=== PATIENT | female | born 1985 | race Caucasian/White ===

== ENCOUNTER 2021-03-09 10:33 | Outpatient (CLI) | payer OTHER, SELFPAY ==
[2021-03-09 10:49] LABS: Basophils Percent Auto 0.5 % (0.2-1.2); Eosinophils Absolute Auto 0.4 K/mm3 (0-0.3); Eosinophils Percent Auto 5.5 % (0-4.4); Hematocrit 40.3 % (37.0-47.0); Hemoglobin 13.3 g/dL (12.0-15.0); Immature Granulocyte Absolute 0.02 K/mm3 (0.00-0.031); Immature Granulocyte Percent A 0.3 % (0-0.5); Lymphocytes Absolute Auto 1.82 K/mm3 (0.9-3.2); Lymphocytes Percent Auto 23.9 % (18.3-44.2); Mean Corpuscular Hemoglobin 30.1 pg (26-34); Mean Corpuscular Volume 91.2 fl (80-100); Mean Platelet Volume 10.6 fl (7.4-10.4); Monocytes Absolute Auto 0.6 K/mm3 (0.1-0.6); Monocytes Percent Auto 7.3 % (2.6-8.5); Neutrophils Absolute Auto 4.8 K/mm3 (1.3-6.7); Neutrophils Percent Auto 62.5 % (45.5-73.1); Platelet Count Result 219 k/mm3 (150-375); Red Blood Count 4.42 M/mm3 (4.2-5.4); Red Cell Distribution Width 12.7 % (11.5-14.5); White Blood Count 7.6 K/mm3 (4.5-10.0)
[2021-03-09 11:00] LABS: Anion Gap 9 mmol/L (8-16); Aspartate Amino Transferase 19 U/L (14-36); Bilirubin,Total 0.4 mg/dL (0.2-1.3); Blood Urea Nitrogen 16 mg/dL (7-17); Calcium 8.8 mg/dL (8.4-10.2); Carbon Dioxide 22 mmol/L (22-30); Chloride 107 mmol/L (98-107); Estimated Glomerular Filt Rate > 60; Glucose 87 mg/dL (65-105); Potassium 4.3 mmol/L (3.4-5.0); Sodium 138 mmol/L (137-145)
[2021-03-09 11:01] LABS: Alanine Aminotransferase 16 U/L (4-35); Alkaline Phosphatase 55 U/L (38-126)
== END 2021-03-09 10:34 | disposition home or self-care (01) ==
PROVIDERS: PCP Family Medicine; Visit Provider Physician Assistant
DX: R10.9 Unspecified abdominal pain (principal); R19.7 Diarrhea, unspecified
CPT/HCPCS: 36415; 80053; 85025

== ENCOUNTER 2024-04-16 11:23 | Outpatient (CLI) | payer BC, SELFPAY ==
--- NOTE | ~2024-04-16 | MMUS_ITS ---
EXAMINATION: MM diagnostic josselin RT w kevin, US breast RT complete HISTORY: Right breast lump TECHNIQUE: Additional 3-D tomosynthesis images of the right breast were performed and synthetic 2-D i mages were generated. CAD analysis was submitted and interpreted. High resolution complete right viviane st ultrasound was performed. COMPARISON: None BREAST PARENCHYMAL COMPOSITION: Dense: The breasts are extremely dense, which lowers the sensitivity of mammography. FINDINGS: MAMMOGRAPHIC FINDINGS: There is a mass in the central medial aspect of the right breast which is obscured by fibroglandular content. There is a halo sign on MLO view, likely benign. No suspicious calcifications or architectur al distortion. ULTRASOUND: Complete US of all 4 quadrants of the right breast and retroareolar region was reviewed. At 3:00, 2 c m from the nipple, there is a 1.7 cm simple cyst corresponds to the mammographic finding. There are m ultiple additional cysts throughout the right breast, largest at 10:00, 3 cm from the nipple in the a levar of palpable concern measuring 2.3 cm maximum dimension. At 11:00, 4 cm from the nipple there is a n oval hypoechoic parallel oriented mass without posterior features measuring 1 cm, likely benign. Al so at 11:00, 4 cm from the nipple there is an oval hypoechoic 7 mm mass with parallel orientation, po sterior acoustic enhancement, likely benign. At 12:00, 4 cm from the nipple, there is a cluster of mi crocysts as well as an oval hypoechoic 5 mm mass, likely benign. IMPRESSION: 1. Probable benign right breast masses by ultrasound. 2. Recommend 6 month follow-up Limited right breast ultrasound. BI-RADS category 3, probably benign findings. Reviewed, dictated and finalized at location B. IMPRESSION: 1. Probable benign right breast masses by ultrasound. 2. Recommend 6 month follow-up Limited right breast ultrasound. BI-RADS category 3, probably benign findings.
== END 2024-04-16 11:24 ==
PROVIDERS: PCP Obstetrics & Gynecology; Visit Provider Obstetrics & Gynecology
DX: N63.10 Unspecified lump in the right breast, unspecified quadrant (principal); R92.8 Other abnormal and inconclusive findings on diagnostic imaging of breast
CPT/HCPCS: 76641; 77061; 77065; G0279

== ENCOUNTER 2024-10-31 09:43 | Outpatient (CLI) | payer BC, SELFPAY ==
--- NOTE | ~2024-10-31 | US_ITS ---
US breast RT limited 10/31/2024 10:03 Indication: Right breast mass Procedure: High-resolution Limited ultrasound of the right breast Comparison: 04/16/2024 Findings: At 10:00, 3 cm from the nipple there is an 11 mm cyst, slightly decreased in size compared with prior study. At 11:00, 4 cm from the nipple there is a 11 mm cyst. At 11:00, 4 cm from the nippl e there is an oval hypoechoic 6 mm mass with low level internal echoes, posterior acoustic enhancemen t and no internal vascularity. This is not significantly changed from prior study. At 12:00, 4 cm fro m the nipple there is a complicated septated cyst with heterogeneous internal echoes measuring 1.9 x 1.5 x 0.7 cm, likely benign without significant change. At 3:00, 2 cm from the nipple there is a mini orin complicated cyst measuring 1.5 cm with low level internal echoes, without change. Impression: 1: No significant change to likely benign right breast masses. BI-RADS CATEGORY 3-PROBABLY BENIGN FINDING RECOMMENDATION: Six-month follow-up bilateral mammogram and Limited right breast ultrasound recommend ed. Reviewed, dictated and finalized at location A. LEAD Impression: 1: No significant change to likely benign right breast masses. BI-RADS CATEGORY 3-PROBABLY BENIGN FINDING RECOMMENDATION: Six-month follow-up bilateral mammogram and Limited right breas t ultrasound recommended.
== END 2024-10-31 09:44 | disposition home or self-care (01) ==
LOC: MICIMG 09:43
PROVIDERS: PCP Obstetrics & Gynecology; Visit Provider Obstetrics & Gynecology
DX: R92.8 Other abnormal and inconclusive findings on diagnostic imaging of breast (principal)
CPT/HCPCS: 76642

== ENCOUNTER 2025-02-08 23:34 | Emergency (ER) | payer BC, SELFPAY ==
--- NOTE | ~2025-02-08 | CT_ITS ---
EXAMINATION: CT abdomen pelvis w con DATE: 02/09/2025 03:22 INDICATION: Left lower quadrant abdominal pain TECHNIQUE: Computed tomography (CT) of the abdomen and pelvis was performed with 100 mL Omnipaque-350 intravenous contrast. Automated exposure control and iterative reconstruction technique were employe d. The dose-length product was 269.80 mGy-cm. COMPARISON: None FINDINGS: Lung bases are clear. Visualized inferior heart is normal. No pericardial or pleural effusion. Small sliding-type hiatal hernia with some associated herniated fat. Likely developmentally abnormal config uration of the liver with torsed appearance of the left hepatic lobe which extends caudally into the right lower quadrant. Gallbladder, spleen, pancreas, bilateral adrenal glands and kidneys are normal. Bladder, uterus and bilateral adnexa are unremarkable. Tampon within the vaginal vault. There is mil d dilation of several loops of ileum in the right abdomen. There is no single discrete transition poi nt however there is wall thickening of the intermittently decompressed more distal ileum consistent w ith an ileitis. No free intraperitoneal gas or fluid. No pathologically enlarged abdominal or pelvic lymphadenopathy. Bones are unremarkable. IMPRESSION: 1. Wall thickening along the lobes of the distalmost ileum with mild dilation of more proximally and suggesting a terminal ileitis which could be infectious or inflammatory in etiology and with secondar y ileus versus partial small bowel obstruction. 2. 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 3. Small sliding-type hiatal hernia. Reviewed, dictated and finalized at location A. IMPRESSION: 1. Wall thickening along the lobes of the distalmost ileum with mild dilation o f more proximally and suggesting a terminal ileitis which could be infectious o r inflammatory in etiology and with secondary ileus versus partial small bowel obstruction. 2. 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 3. Small sliding-type hiatal hernia.
--- OUTSIDE RECORDS SUMMARY | 2025-02-08 23:36 | XMS_ITS | Continuity of Care Document ---
Author Organization [facility] Address [address] [place] [address] Phone Care Team Providers Care Hatchery Manager Name Role Phone Leyt PT, Hunter ROMERO Unavailable Unavailable Procedures Procedure Date PT RE-EVALUATION THERAPEUTIC EXERCISES NEUROMUSCULAR RE-ED MANUAL THERAPY HOT/COLD PACK ELECTRIC STIMULATION UNATT THERAPEUTIC EXERCISES NEUROMUSCULAR RE-ED MANUAL THERAPY HOT/COLD PACK ELECTRIC STIMULATION UNATT THERAPEUTIC EXERCISES NEUROMUSCULAR RE-ED MANUAL THERAPY HOT/COLD PACK ELECTRIC STIMULATION UNATT THERAPEUTIC EXERCISES NEUROMUSCULAR RE-ED MANUAL THERAPY HOT/COLD PACK ELECTRIC STIMULATION UNATT PT EVALUATION THERAPEUTIC EXERCISES MANUAL THERAPY HOT/COLD PACK ELECTRIC STIMULATION UNATT Advance Directives Directive Yes / No Effective Date File Name No Information Encounters Encounter Description Practice Location Reason(s) For Visit Diagnoses Date Provider Providers Copied on Encounter [facility], [address], [place], [place], [id number], tel:[phone] [place] No Information 4 Lety Harrison. [address] [facility], [address], [address], . tel:[phone] Referring Provider: Nakita Nation , [address] [facility], [place], [address]. tel:[phone], [id number], tel:[phone] [place] No Information 4 Lety Hunter. [address] [place] [address], [facility], [place]. tel:[phone] Referring Provider: Nakita Nation , [address] [facility], [place], [address]. tel:[phone], [id number], [place] tel:[phone] [place] No Information 4 Lety Hunter. [address] [place] [address], [facility], [place]. tel:[phone] Referring Provider: Nakita Nation , [address] [facility], [place], [address]. tel:[phone], [id number], tel:[phone] [place] No Information 4 Lety Hunter. [address] [place] [address], [facility], [place]. tel:[phone] Referring Provider: Nakita Nation , [address] [facility], [place], [address]. [phone], [id number], tel:[phone] [place] CervicalgiaPain in joint involving shoulder region Jul- 4 Lety Hunter. [address] [place] [address], [facility], [place]. tel:[phone] Referring Provider: Nakita Nation , [address] [facility], [place], [address]. tel:[phone] Family History Family Member Type Diagnosis Age At Onset No Information Payers Payer name Insurance type Covered alliance party ID Authoriza tion(s) No Information Social History Type Description Quantity Date Captured Comments Sex Female Smoking Status No Information Chief Complaint And Reason For Visit No Information Reason For Referral Reason For Referral No Information History Of Present Illness Encounter Date Complaint History Of Prese nt Illness No Information Functional Status Date Functional Assessmen t No Information Instructions Date Instruction Additional Infor mation No Information Assessments Type Assessment Date No Information Patient Care Teams Name Effective Dates (start - stop) Status Members No Information
--- OUTSIDE RECORDS SUMMARY | 2025-02-08 23:36 | XMS_ITS | Clinical Summary ---
Author Organization [facility] Address [address] [place] [address] Care Team Providers Care Information Services Manager Name Role Phone Nakita Nation MD Primary Care Provider + Source Comments [facility],non-owned Affiliates and Associated Physician Practices is amultiple site organization consisting of ambulatory clinics and hospital sitesin [place], [place], [place] and [place]. This disclosure is being madepursuant to the Care Everywhere program and may not contain all information available regarding this patient. Last updated 18.[facility] Allergies Active Allergy Reactions Criticality Noted Date Comments Penicillins Rash Medium 05/14/2021 Medications * Be aware that medications may not be up to date on this document. Alwaysverify current medications with the patient. ibuprofen (MOTRIN) 600 MG tablet Take 1 (one) tablet by mouth every 6 hours as needed for Pain 30 tablet 1 Active Additional Information Patient not taking.Reported on 05/21/2021 acetaminophen (TYLENOL) 500 MG tablet Take 2 (two) tablets by mouth every 8 hours Maximum allowable Acetaminophen amount = 4 Grams (4000 mg) / 24 hours. 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 Gender Identity Not on file Sexual Orientation Not on file Last Filed Vital Signs Vital Sign Reading Time Taken Comments Blood Pressure 98/66 05/21/2021 11:47 AM CDT Pulse 74 05/21/2021 11:47 AM CDT Temperature 36.7 C (98 F) 05/14/2021 11:35 PM CDT Respiratory Rate 16 05/14/2021 11:35 PM CDT Oxygen Saturation 100% 05/21/2021 11:47 AM CDT Inhaled Oxygen Concentration - - Weight 64 kg (141 lb) 05/21/2021 11:47 AM CDT Height 167.6 cm (5' 6 ) 05/21/2021 11:47 AM CDT Body Mass Index 22.76 05/21/2021 11:47 AM CDT Plan of Treatment Health Maintenance Due Date Last Done Comments LIPID TESTING 1985 MAMMOGRAM 1985 HIV SCREENING 01/24/2000 HEPATITIS C SCREENING 01/19/2003 DTAP/TDAP/TD VACCINES (1 - Tdap) 01/24/2004 HEPATITIS B VACCINE (1 of 3 - 19+ 3-dose series) 01/24/2004 COVID-19 VACCINE (2023-2 5 season) 2024 DEPRESSION SCREENING 10/03/2024 INFLUENZA VACCINE (Season Ended) 2025 ZOSTER VACCINE (1 of 2) 2035 HIB VACCINE Aged Out No longer eligi ble based on patient's age to complete this topic HPV VACCINE Aged Out No longer eligi ble based on patient's age to complete this topic MENINGOCOCCAL (Group B) VACC INE SHARED DECISION-MAKING Aged Out No longer eligibl e based on patient's age to complete this topic MENINGOCOCCAL GROUPS A/C/Y/W VACCINE Aged Out No longer eligible b ased on patient's age to complete this topic PNEUMOCOCCAL VACCINE Aged Out No long er eligible based on patient's age to complete this topic Insurance CIGNA CIGNA CIGNA CIGNA CIGNA CIGNA CIGNA CIGNA CIGNA CIGNA CIGNA CIGNA CIGNA CIGNA CIGNA CIGNA CIGNA CIGNA CIGNA WC PAYOR GENERIC Care Teams Information Services Manager Relationship Specialty Start Date End Date Nakita Nation MD [address] [place] [address] PCP - General Family Medicine 05/12/21
[2025-02-08 23:47] VITALS: BP 116/76; PULSE 95; RESP 18; TEMP 36.7; O2SAT 100
[2025-02-09] VITALS (9 sets, daily range): BP systolic 114–124; BP diastolic 67–78; PULSE 61–78; RESP 12–18; TEMP 36.8–36.9; O2SAT 98–100
[2025-02-09 02:32] LABS: Basophils Absolute Auto 0.1 K/mm3 (0.0-0.1); Basophils Percent Auto 0.5 % (0.2-1.2); Eosinophils Absolute Auto 0.1 K/mm3 (0-0.3); Eosinophils Percent Auto 0.8 % (0-4.4); Hematocrit 38.8 % (37.0-47.0); Hemoglobin 13.2 g/dL (12.0-15.0); Immature Granulocyte Absolute 0.05 K/mm3 (0.00-0.031); Immature Granulocyte Percent A 0.3 % (0-0.5); Lymphocytes Absolute Auto 1.55 K/mm3 (0.9-3.2); Lymphocytes Percent Auto 10.1 % (18.3-44.2); Mean Corpuscular Volume 91.1 fl (80-100); Mean Platelet Volume 10.8 fl (7.4-10.4); Monocytes Absolute Auto 0.5 K/mm3 (0.1-0.6); Monocytes Percent Auto 3.4 % (2.6-8.5); Neutrophils Absolute Auto 13.1 K/mm3 (1.3-6.7); Neutrophils Percent Auto 84.9 % (45.5-73.1); Platelet Count Result 223 k/mm3 (150-375); Red Blood Count 4.26 M/mm3 (4.2-5.4); Red Cell Distribution Width 12.2 % (11.5-14.5); White Blood Count 15.4 K/mm3 (4.5-10.0)
[2025-02-09] MEDS: SODIUM CHLORIDE 0.9% IV 1,000 ML 999 ML IV CONT (02:32)
[2025-02-09 02:38] LABS: BEDSIDEPREGUCG Negative (Negative)
[2025-02-09 02:42] LABS: Add Urine Microscopic? NO; Appearance Urine Clear (Clear); Bilirubin Urine Negative (Negative); Blood Urine Negative (Negative); Color Urine Yellow (Yellow); Glucose Urine UA Negative (Negative); Ketones Urine 1+ mg/dL (Negative); Leukocyte Esterase Ur Negative LEU/UL (Negative); Nitrate Urine Negative (Negative); Protein Urine Negative (Negative); Specific Grav Ur 1.017 (1.001-1.035); Urobilinogen Urine 0.2 mg/dL (<2.0); pH Urine 5.5 (5.0-9.0)
[2025-02-09 02:43] LABS: Lactic Acid Reflex 0.9 mmol/L (0.7-2.0)
[2025-02-09 02:44] LABS: Alanine Aminotransferase 17 U/L (6-35); Albumin Level 4.8 g/dL (3.5-5.1); Alkaline Phosphatase 52 U/L (38-126); Anion Gap 11 mmol/L (4-12); Aspartate Amino Transferase 21 U/L (14-36); Bilirubin,Total 1.1 mg/dL (0.2-1.3); Blood Urea Nitrogen 15 mg/dL (7-17); Calcium 9.1 mg/dL (8.4-10.2); Carbon Dioxide 22 mmol/L (22-30); Chloride 106 mmol/L (98-107); Estimated CRCL calculation 74 ml/min; Estimated Glomerular Filt Rate > 60; Glucose 102 mg/dL (65-110); Lipase 76 U/L (23-300); Sodium 139 mmol/L (137-145)
--- OUTSIDE RECORDS SUMMARY | 2025-02-09 02:59 | XMS_ITS | Clinical Summary ---
Author Organization [facility] Address [address] [place] [address] Care Team Providers Care Car Wrecker Name Role Phone Nakita Nation MD Primary Care Provider + Source Comments [facility],non-owned Affiliates and Associated Physician Practices is amultiple site organization consisting of ambulatory clinics and hospital sitesin [place], [place], [place] and [place]. This disclosure is being madepursuant to the Care Everywhere program and may not contain all information available regarding this patient. 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
--- OUTSIDE RECORDS SUMMARY | 2025-02-09 02:59 | XMS_ITS | Continuity of Care Document ---
Author Organization [facility] Address [address] [place] [address] Phone Care Team Providers Care Shop Coordinator Name Role Phone Lety PT, Hunter ROMERO Unavailable Unavailable Procedures Procedure [...] Diagnoses Date Provider Providers Copied on Encounter [facility], [address], [place], [place], [id number], tel:[phone] [place] No Information [address] [facility], [address], [address], . tel:[phone] Referring Provider: Nakita Nation , [address] [facility], [place], [address]. tel:[phone], [id number], tel:[phone] [place] No Information 4 Lety Hunter. [address] [place] [address], [facility], [place]. tel:[phone] Referring Provider: Nakita Nation , [address] [facility], [place], [address]. tel:[phone], [id number], [place] tel:[phone] [place] No Information 4 Lety Hunter. [address] [place] [address], [facility], [place]. tel:[phone] Referring Provider: Nakita Nation , [address] [facility], [place], [address]. tel:[phone], [id number], tel:[phone] [place] No Information 4 Lety Hunter. [address] [place] [address], [facility], [place]. tel:[phone] Referring Provider: Nakita Nation , [address] [facility], [place], [address]. [phone], [id number], tel:[phone] [place] CervicalgiaPain in joint involving shoulder region Jul- 4 Lety Hunter. [address] [place] [address], [facility], [place]. tel:[phone] Referring Provider: Nakita Nation , [address] [facility], [place], [address]. tel:[phone] Family History Family Member Type Diagnosis Age At Onset No Information Payers Payer name Insurance type Covered constitution party ID Authoriza tion(s) No Information Social [...]
[2025-02-09] MEDS: KETOROLAC 15 MG/ML VIAL (*BKC) IV PUSH (05:37)
[2025-02-09] MEDS: HYDROmorphone HCL INJ (*CRX) 2 MG/ML VIAL 0.5 MG IV PUSH (05:38)
--- NOTE | 2025-02-09 06:07 | ED_ITS ---
HPI - General Adult General Chief complaint: Abdominal Pain Stated complaint: Abd pain, n/v Time Seen by Provider: 02/09/25 01:39 History of Present Illness HPI narrative: This is a 40-year-old female presenting with abdominal pain. Pain started around 12 today. It is primarily in the left lower quadrant. It comes and goes. It is sharp in nature. Does not radiate. She has had 1 episode of nausea/vomiting. She has had several bowel movements today but they were described as ?nuggets.? She has passed gas today. She denies fevers chills chest pain difficulty urinary symptoms. Related Data Allergies Allergy/AdvReac Type Severity Reaction Status Date / Time amoxicillin Allergy Unknown unknown Verified 02/08/25 23:50 codeine Allergy Unknown unknown Verified 02/08/25 23:50 hydrocodone Allergy Unknown unknown Verified 02/08/25 23:50 Penicillins Allergy Unknown unknown Verified 02/08/25 23:50 ANALG/ANTIPYRET Allergy Unknown unknown Uncoded 12/04/21 13:40 NKFA Allergy Unknown unknown Uncoded 12/04/21 13:40 PMFSH Past Medical History Medical History History of omphalocele Surgical History Surgical History History of repair of anterior cruciate ligament of left knee History of tonsillectomy History of delivery Family History Family History Mother Patient's mother is in good health Father Hypertension Sibling Patient's sister is in good health Social History Social History Social History: Years smoked: 20 Smoking status: Light tobacco smoker Tobacco type: cigarettes Second hand tobacco smoke exposure: Yes Alcohol intake: current Alcohol use details: Occasionally Substance use: never Substance use type: does not use Living arrangements: with family Occupation/Education: occupation Gender identity (if verbalized by the patient): Female Sexual Orientation (if Verbalized by the Patient): Lesbian, Arellano, or Homosexual Exam 2 Narrative: APPEARANCE: No apparent distress. Head: atraumatic. EYES: EOMI, NOSE: Atraumatic NECK: Trachea midline RESPIRATORY: No increased rate of breathing clear to auscultation CARDIOVASCULAR: RRR, no peripheral edema ABDOMINAL: Soft, mild tenderness in the left lower quadrant, no guarding no rebound no distention MUSCULOSKELETAl: No obvious deformities NEURO: Alert. Moving 4/4 extremities SKIN:: Warm, dry. Normal color PSYCHIATRIC: Normal affect Course Vital Signs Vital signs: Vital Signs Temperature 98.0 F 02/08/25 23:47 Pulse Rate 95 02/08/25 23:47 Respiratory Rate 18 02/08/25 23:47 Blood Pressure 116/76 02/08/25 23:47 Pulse Oximetry 100 02/08/25 23:47 Oxygen Delivery Room Air 02/08/25 23:47 Temperature 98.4 F 02/09/25 02:33 Pulse Rate 68 02/09/25 02:33 Respiratory Rate 16 02/09/25 02:33 Blood Pressure 116/70 02/09/25 02:33 Pulse Oximetry 100 02/09/25 02:33 Oxygen Delivery Room Air 02/08/25 23:47 Medical Decision Making [facility] Narrative Medical decision making narrative: -Course: 40-year-old female presenting crampy intermittent abdominal pain. White count 15. CT abdomen pelvis interpreted by stat read as multi segmental enteritis. Possible partial small bowel obstruction her small-bowel ileus most notably in the right abdomen. Patient has hyperactive bowel sounds and has been having bowel movements today. Presentation is most consistent with gastroenteritis. Given her CT findings I did discuss admission for bowel rest/monitoring versus discharge with the patient and her (who is a nurse.) The patient does not want to be admitted to the hospital and would like to trial outpatient bowel rest with supportive medications. Patient was able to tolerate p.o. her abdomen is still soft without guarding or rebound. Vital signs are stable. I discussed the importance of returning to the ED if her symptoms are to worsen including severe abdominal pain, intractable nausea vomiting or fevers. They are comfortable with this plan. -DDX includes but is not limited to: Gastroenteritis, small-bowel obstruction ileus, diverticulitis, colitis, appendicitis Vital Signs Vital Signs: Vital Signs Temperature 98.0 F 02/08/25 23:47 Pulse Rate 95 02/08/25 23:47 Respiratory Rate 18 02/08/25 23:47 Blood Pressure 116/76 02/08/25 23:47 Pulse Oximetry 100 02/08/25 23:47 Oxygen Delivery Room Air 02/08/25 23:47 Temperature 98.4 F 02/09/25 02:33 Pulse Rate 68 02/09/25 02:33 Respiratory Rate 16 02/09/25 02:33 Blood Pressure 116/70 02/09/25 02:33 Pulse Oximetry 100 02/09/25 02:33 Oxygen Delivery Room Air 02/08/25 23:47 Lab Data 02/09/25 02:26 02/09/25 02:26 Labs: Lab Results 02/09/25 02/09/25 02/09/25 Range/Units 02:26 02:35 02:36 WBC 15.4 H (4.5-10.0) K/mm3 RBC 4.26 (4.2-5.4) M/mm3 Hgb 13.2 (12.0-15.0) g/dL Hct 38.8 (37.0-47.0) % MCV 91.1 (80-100) fl MCH 31.0 (26-34) pg MCHC 34.0 (32-36) g/dl RDW 12.2 (11.5-14.5) % Plt Count 223 (150-375) k/mm3 MPV 10.8 H (7.4-10.4) fl Immature Gran % (Auto) 0.3 (0-0.5) % Neut % (Auto) 84.9 H (45.5-73.1) % Lymph % (Auto) 10.1 L (18.3-44.2) % [place] % (Auto) 3.4 (2.6-8.5) % Eos % (Auto) 0.8 (0-4.4) % Baso % (Auto) 0.5 (0.2-1.2) % Lymph # (Auto) 1.55 (0.9-3.2) K/mm3 [place] # (Auto) 0.5 (0.1-0.6) K/mm3 Eos # (Auto) 0.1 (0-0.3) K/mm3 Baso # (Auto) 0.1 (0.0-0.1) K/mm3 Abs Immat Gran (auto) 0.05 H (0.00-0.031) K/mm3 Absolute Neuts (auto) 13.1 H (1.3-6.7) K/mm3 Absolute Nucleated RBC 0.000 (0.0-0.012) K/mm3 Nucleated RBC % 0.0 (0.0-0.2) % Sodium 139 (137-145) mmol/L Potassium 4.0 (3.4-5.0) mmol/L Chloride 106 (98-107) mmol/L Carbon Dioxide 22 (22-30) mmol/L Anion Gap 11 (4-12) mmol/L BUN 15 (7-17) mg/dL Creatinine 0.83 (0.7-1.0) mg/dL Estim Creat Clear Calc 74 ml/min Estimated GFR > 60 (59 - ) Glucose 102 (65-110) mg/dL Lactic Acid 0.9 (0.7-2.0) mmol/L Calcium 9.1 (8.4-10.2) mg/dL Total Bilirubin 1.1 (0.2-1.3) mg/dL AST 21 (14-36) U/L ALT 17 (6-35) U/L Alkaline Phosphatase 52 (38-126) U/L Total Protein 8.0 (6.3-8.2) g/dL Albumin 4.8 (3.5-5.1) g/dL Lipase 76 (23-300) U/L Urine Color Yellow (Yellow) Urine Appearance Clear (Clear) Urine pH 5.5 (5.0-9.0) Ur Specific [place] 1.017 (1.001-1.035) Urine Protein Negative (Negative) mg/dL Urine Glucose (UA) Negative (Negative) mg/dL Urine Ketones 1+ H (Negative) mg/dL Ur Blood (Man) Negative (Negative) Urine Nitrate Negative (Negative) Urine Bilirubin Negative (Negative) Urine Urobilinogen 0.2 (<2.0) mg/dL Leukocyte Esterase Rfl Negative (Negative) ROLF/UL POC Urine HCG, Qual Negative (Negative) Discharge Plan Discharge Clinical Impression: Gastroenteritis Patient Disposition: Home Condition: Guarded Prognosis Instructions: Antibiotic Form, Gastroenteritis (ED) Additional Instructions: You were seen in the emergency department for abdominal pain, nausea and vomiting. Your CT showed some inflamed loops of bowel. There was some concern for a small-bowel obstruction or ileus although that does not fit her clinical picture. We discussed admission and you have opted for outpatient therapy. Please use Motrin/Tylenol for pain, Zofran for nausea. If you develop severe abdominal pain, intractable nausea vomiting or fevers please return emergency department immediately. Patient Language: Prydeinig Prescriptions: New ibuprofen 800 mg tablet 800 mg PO TID PRN (Reason: pain) 7 Days Qty: 21 0RF acetaminophen 500 mg tablet 1,000 mg PO TID PRN (Reason: patricia) 7 Days Qty: 42 0RF ondansetron 4 mg tablet,disintegrating 4 mg PO Q8H PRN (Reason: nausea and vomiting) Qty: 30 0RF dicyclomine 20 mg tablet 20 mg PO BID Qty: 14 0RF No Action cefdinir 300 mg capsule 300 mg PO Q12H Qty: 20 0RF tobramycin 0.3 % drops 2 drp EACH EYE Q4H Qty: 5 0RF Follow-up/Referrals: Raffi Gamble MD [Primary Care Provider] -
[2025-02-09] MEDS: DICYCLOMINE HCL INJ 20 MG/2 ML VIAL IM (06:23)
== END 2025-02-09 07:10 | disposition home or self-care (01) ==
PROVIDERS: Emergency Provider Emergency Medicine; PCP Family Medicine
DX: K52.9 Noninfective gastroenteritis and colitis, unspecified (principal)
CPT/HCPCS: 36415; 74177; 80053; 81003; 81025; 83605; 83690; 85025; 96361; 96372; 96374; 96375; 99284; J0500; J1171; J1885; J7030; Q9967

== ENCOUNTER 2025-05-06 12:45 | Outpatient (CLI) | payer BC, SELFPAY ==
--- NOTE | ~2025-05-06 | MMUS_ITS ---
EXAMINATION: MM diagnostic josselin BI w kevin, US breast BI limited INDICATION: 40-year old female; short-term follow-up right breast findings and annual screening left breast. COMPARISON: 04/16/2024 TECHNIQUE: Digital breast tomosynthesis True lateral and CC and MLO views of both breasts were obtain ed with computer-aided detection to assist in interpretation of the study. Bilateral focused breast u ltrasound was completed. MAMMOGRAM FINDINGS: The breasts are extremely dense, which lowers the sensitivity of mammography. There are no new suspicious masses, calcifications or architectural distortion seen in both breasts. Multiple circumscribed masses in the upper outer left breast. BILATERAL BREAST ULTRASOUND FINDINGS: Targeted evaluation of the area of concern was completed. Right breast: There are multiple cysts reidentified in the right breast. The largest located at 12:00, 4 cm from th e nipple measure 2.2 cm in the largest dimension. Left breast: There are multiple cysts identified in the superior left breast with the largest at 11:00 measuring u p to 2.6 cm. IMPRESSION: Benign BILATERAL breast cysts correlates to mammographic finding. No further investigation necessary. RECOMMENDATION: Annual screening bilateral mammography in 12 months BI-RADS 2, BENIGN Reviewed, dictated and finalized at location B. IMPRESSION: Benign BILATERAL breast cysts correlates to mammographic finding. No further in vestigation necessary. RECOMMENDATION: Annual screening bilateral mammography in 12 months BI-RADS 2, BENIGN
--- OUTSIDE RECORDS SUMMARY | 2025-05-06 13:00 | XMS_ITS | Clinical Summary ---
Author Organization [facility] Address [address] [place] [address] Care Team Providers Care Nailhead Operator Name Role Phone Nakita Nation MD Primary Care Provider + Source Comments [facility],non-owned Affiliates and Associated Physician Practices is amultiple site organization consisting of ambulatory clinics and hospital sitesin [place], [place], [place] and [place]. This disclosure is being madepursuant to the Care Everywhere program and may not contain all information available regarding this patient. 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 Gender Identity Not on file Sexual Orientation [...] 11:47 AM CDT Height 167.6 cm (5' 6) 05/21/2021 11:47 AM CDT Body Mass Index 22.76 05/21/2021 11:47 AM CDT Plan of Treatment Health Maintenance Due Date Last Done Comments LIPID TESTING 1985 MAMMOGRAM 1985 HIV SCREENING 01/24/2000 HEPATITIS C SCREENING 01/19/2003 DTAP/TDAP/TD VACCINES (1 - Tdap) 01/24/2004 HEPATITIS B VACCINE (1 of 3 - 19+ 3-dose series) 01/24/2004 HPV VACCINE (1 - 3-dose SCDM series) 01/24/2012 COVID-19 VACCINE (1 - 2023-2 5 season) 2024 DEPRESSION SCREENING 10/03/2024 INFLUENZA VACCINE (#1) 2025 ZOSTER VACCINE (1 of 2) 2035 [...] topic Insurance CIGNA CIGNA CIGNA CIGNA CIGNA Member Subscriber Plan / Payer (Ef fective for All Dates) Name:Guevara Noble Relation to Subscriber:Self Name:GUEAVRA NOBLE Payer ID:[id number] (NAIC) Type:O Address: [place] [id number] [employer]IGNA Member Subscriber Plan / Payer (Ef fective for All Dates) Name:Guevara Noble Relation to Subscriber:Self Name:GUEVARA NOBLE Payer ID:[id number] (NAIC) Type:HMO Address: [id number] [place] [id number] CIGNA CIGNA CIGNA CIGNA CIGNA CIGNA CIGNA CIGNA Member Subscriber Plan / Payer (Ef fective for All Dates) Name:Guevara Noble Relation to Subscriber:Self Name:GUEVARA NOBLE Payer ID:[id number] (NAIC) Type:HMO Address: [id number] [place] [id number] CIGNA CIGNA Member Subscriber Plan / Payer (Ef fective 2017-Present) Name:Guevara Noble Relation to Subscriber:Self Name:GUEVARA NOBLE Payer ID:[id number] (NAIC) Type:HMO Address: [address] [place] [id number] CIGNA CIGNA WC PAYOR GENERIC Care Teams Nailhead Operator Relationship Specialty Start Date End Date Nakita Nation MD [address] [place] [address] PCP - General Family Medicine 05/12/21
== END 2025-05-06 12:46 | disposition home or self-care (01) ==
LOC: ANHIMG 12:54
PROVIDERS: PCP Family Medicine; Visit Provider Obstetrics & Gynecology
DX: R92.8 Other abnormal and inconclusive findings on diagnostic imaging of breast (principal)
CPT/HCPCS: 76642; 77062; 77066; G0279